=== PATIENT | male | born 1995 | race Caucasian/White ===

== ENCOUNTER 2023-10-24 21:34 | Emergency (ER) | payer SELFPAY ==
[~2023-10-24] VITALS: Ht 180.3 cm; Wt 99.0 kg
[2023-10-24] MEDS ORDERED: TOPUD PO (23:43)
[2023-10-24 23:55] VITALS: BP 131/76; PULSE 104; RESP 20; TEMP 97.8
== END 2023-10-25 00:47 | disposition home or self-care (01) ==
LOC: ER 21:34
DX: S62.607A Fracture of unspecified phalanx of left little finger, initial encounter for closed fracture (principal); X58.XXXA Exposure to other specified factors, initial encounter; Y93.89 Activity, other specified; Y92.89 Other specified places as the place of occurrence of the external cause; Y99.8 Other external cause status
CPT/HCPCS: 29130; 73120; 99283